=== PATIENT | male | born 1990 | race Caucasian/White ===

== ENCOUNTER 2016-12-13 20:16 | Emergency (ER) | payer BC ==
[~2016-12-13] VITALS: Ht 180.3 cm; Wt 81.8 kg
[~2016-12-13 20:16] MED LIST: AMOXICILLIN 50500 MG PO; ATIVAN0.5 MG PO; NO HOME MEDICATIONS; UNABLE
[2016-12-13 20:24] VITALS: BP 125/68; TEMP 98.1
[2016-12-13] MEDS ORDERED: AMOXICILLIN 50500 MG PO (22:22)
[2016-12-13] MEDS ORDERED: NORCO 325 MG-51 TAB PO (22:22)
[2016-12-13 22:55] VITALS: PULSE 87
== END 2016-12-13 22:56 | disposition home or self-care (01) ==
LOC: COL.ER 20:16
DX: M27.2 Inflammatory conditions of jaws (principal); F17.210 Nicotine dependence, cigarettes, uncomplicated

== ENCOUNTER 2018-02-13 21:28 | Emergency (ER) | payer BC ==
[~2018-02-13] VITALS: Ht 180.3 cm; Wt 111.4 kg
[~2018-02-13 21:28] MED LIST changes: +NORCO 325 MG-51 TAB PO
[2018-02-13 21:37] VITALS: BP 128/65; TEMP 99
[2018-02-13] MEDS ORDERED: NORCO 325 MG-51 TAB PO (22:50)
[2018-02-13] MEDS ORDERED: AMOXICILLIN 8751 TAB PO (22:50)
[2018-02-13 23:05] VITALS: PULSE 98
== END 2018-02-13 23:05 | disposition home or self-care (01) ==
LOC: COL.ER 21:28
DX: K04.7 Periapical abscess without sinus (principal); F17.210 Nicotine dependence, cigarettes, uncomplicated

== ENCOUNTER 2019-01-03 17:08 | Emergency (ER) | payer BC ==
[~2019-01-03] VITALS: Ht 180.3 cm; Wt 100.0 kg
[~2019-01-03 17:08] MED LIST changes: +AMOXICILLIN 8751 TAB PO
[2019-01-03 17:35] VITALS: BP 134/77; TEMP 97.8
[2019-01-03] MEDS ORDERED: AMOXICILLIN 8751 TAB PO (18:23)
[2019-01-03 18:46] VITALS: PULSE 91
== END 2019-01-03 18:46 | disposition home or self-care (01) ==
LOC: COL.ER 17:08
DX: K02.9 Dental caries, unspecified (principal); K04.7 Periapical abscess without sinus; F17.210 Nicotine dependence, cigarettes, uncomplicated